=== PATIENT | male | born 1995 | race African-American/Black ===

== ENCOUNTER 2018-08-27 21:51 | Emergency (ER) | payer MEDICAID, OTHER ==
[~2018-08-27] VITALS: Ht 177.8 cm; Wt 75.0 kg
[2018-08-27] MEDS ORDERED: ONDANSETRON HCL 4MG/2ML INJ IV STA (23:12)
[2018-08-28 01:26] VITALS: BP 122/69
== END 2018-08-28 01:28 | disposition home or self-care (01) ==
LOC: ER 21:51
DX: S06.0X9A Concussion with loss of consciousness of unspecified duration, initial encounter (principal); W03.XXXA Other fall on same level due to collision with another person, initial encounter; Y93.66 Activity, soccer; Y92.39 Other specified sports and athletic area as the place of occurrence of the external cause
CPT/HCPCS: 70450; 72050; 96374; 99284; J2405